=== PATIENT | female | born 1950 | race Two or more races ===

== ENCOUNTER 2019-08-26 21:23 | Emergency (ER) | payer OTHER ==
[~2019-08-26] VITALS: Ht 167.6 cm; Wt 86.2 kg
[2019-08-26] MEDS ORDERED: ACEBUTOLOL HCL200 MG PO (21:41)
== END 2019-08-27 03:56 | disposition home or self-care (01) ==
LOC: ER 21:23
DX: R41.0 Disorientation, unspecified (principal)
CPT/HCPCS: 70545